=== PATIENT | female | born 1950 | race Hispanic/Latino ===

== ENCOUNTER 2021-10-02 09:18 | Outpatient (CLI) | payer MEDICARE ==
[2021-10-02 10:41] LABS: Blood Urea Nitrogen 19 mg/dL (7-17)
--- NOTE | 2021-10-02 13:34 | Magnetic Resonance Report ---
MRI BRAIN 10/02/2021 INDICATION / CLINICAL INFORMATION: DIZZINESS. TECHNIQUE: Multiplanar, multisequence MR images of the brain were obtained. COMPARISON: None available. FINDINGS: BRAIN / INTRACRANIAL CONTENTS: Unenhanced and enhanced MR images of the brain demonstrate no evidence of acute abnormality. Ventricles and sulci are in normal limits of size and shape for a patient of this age. There is no evidence of acute ischemic injury, hemorrhage, or mass. Some mild chronic microangiopathic type white matter T2 weighted hyperintensities are present through out the deep and subcortical white matter of the cerebral hemispheres. There is no abnormal contrast enhancement. EXTRACRANIAL: Unremarkable CRANIOCERVICAL JUNCTION: No significant abnormality. VASCULAR FLOW-VOIDS: No significant abnormality. IMPRESSION: No significant abnormality. Mild chronic and age-related changes. Signer Name: Jr Fitzgerald MD Signed: 10/02/2021 1:30 PM Workstation Name: [id number]
--- NOTE | 2021-10-02 13:39 | Magnetic Resonance Report ---
MRA NECK 10/02/2021 INDICATION / CLINICAL INFORMATION: DIZZINESS, headaches. TECHNIQUE: Routine MRA of the neck are performed. 3-D/MIP reformats postprocessed. Percentage stenosis is deter mined by direct quantitative measurements of distal internal carotid artery diameter compared with no rmal reference segments or by criteria similar to NASCET where applicable. COMPARISON: None available. FINDINGS: Unenhanced and enhanced MR angiographic images of the neck were obtained. 3D/MIP reformats were post- processed. Carotid bifurcations: There is no evidence of carotid bifurcation stenosis. Common carotid arteries: No significant abnormality. Cervical internal carotid arteries: No significant abnormality. Cervical vertebral arteries: No significant abnormality. Visible aortic arch: Unremarkable IMPRESSION: No significant abnormality Signer Name: Jr Fitzgerald MD Signed: 10/02/2021 1:34 PM Workstation Name: [id number]
--- NOTE | 2021-10-02 13:42 | Magnetic Resonance Report ---
MRA HEAD 10/02/2021 INDICATION / CLINICAL INFORMATION: DIZZINESS. TECHNIQUE: Routine MRA of the head is performed. 3-D/MIP reformats postprocessed. COMPARISON: None available. FINDINGS: MRA HEAD: Intracranial internal carotid arteries: No significant abnormality. Anterior cerebral arteries: No significant abnormality. Middle cerebral arteries: There is no evidence of vessel occlusion. Slight irregularity along the inf erior margin of the left MCA trifurcation is present. Although this may represent a vessel origin, th e associated vessel cannot be fully traced, and therefore the possibility of a small 1 to 2 mm aneury sm cannot be excluded. Depending on details of the clinical circumstances, this area can be evaluated noninvasively in further detail with the use of contrast enhanced CT angiography. Intracranial vertebral arteries: No significant abnormality. Basilar artery: No significant abnormality. Posterior cerebral arteries: No significant abnormality. IMPRESSION: 1. No evidence of vessel occlusion. 2. 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 Signer Name: Jr Fitzgerald MD Signed: 10/02/2021 1:37 PM Workstation Name: [id number]
== END 2021-10-02 09:19 | disposition home or self-care (01) ==
LOC: MRI 09:18
PROVIDERS: ATTEND Internal Medicine
DX: I67.1 Cerebral aneurysm, nonruptured (principal); R42 Dizziness and giddiness
CPT/HCPCS: 36415; 70544; 70549; 70553; 82565; 84520; A9575